=== PATIENT | female | born 1975 | race Caucasian/White ===

== ENCOUNTER 2018-12-21 10:40 | Emergency (ER) | payer SELFPAY ==
[~2018-12-21] VITALS: Ht 160 cm; Wt 75.7 kg
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
--- NOTE | 2018-12-21 10:49 | NUR ---
AT BEDSIDE FOR EVAL.
--- NOTE | 2018-12-21 10:55 | NUR ---
PT IS WHEELED TO CT SCAN VIA [facility].
[2018-12-21] MEDS ORDERED: ACETAMINOPHEN ES 500 MG TABLET ONE (11:04)
[2018-12-21] MEDS ORDERED: IBUPROFEN 600 MG TABLET PO ONE (11:05)
[2018-12-21] MEDS ORDERED: ONDANSETRON 4 MG TAB.RAPDIS ONE (11:05)
[2018-12-21] MEDS: ACETAMINOPHEN ES 500 MG TABLET PO ONE (11:08)
[2018-12-21] MEDS: IBUPROFEN 600 MG TABLET PO ONE (11:08)
[2018-12-21] MEDS: ONDANSETRON 4 MG TAB.RAPDIS PO ONE (11:08)
--- NOTE | 2018-12-21 13:16 | NUR ---
Patient discharged to home in stable condition. Written and verbal after care instructions given. Patient verbalizes understanding of instruction.
[2018-12-21 13:17] VITALS: BP 122/64
== END 2018-12-21 13:18 | disposition home or self-care (01) ==
LOC: ER 10:43
DX: S06.0X0A Concussion without loss of consciousness, initial encounter (principal); S16.1XXA Strain of muscle, fascia and tendon at neck level, initial encounter; S39.012A Strain of muscle, fascia and tendon of lower back, initial encounter; Z88.0 Allergy status to penicillin; V49.49XA Driver injured in collision with other motor vehicles in traffic accident, initial encounter; Y93.89 Activity, other specified; Y92.413 State road as the place of occurrence of the external cause; Y99.8 Other external cause status
CPT/HCPCS: 70450; 72125; 72131; 99284; Q0162

== ENCOUNTER 2019-05-26 11:14 | Outpatient (CLI) | payer BC | END 2019-05-26 23:59 | disposition home or self-care (01) | LOC: WOU 11:14 | PROVIDERS: ATTEND Surgery | DX: Z80.3 Family history of malignant neoplasm of breast (principal); Z12.31 Encounter for screening mammogram for malignant neoplasm of breast | CPT/HCPCS: G0463 ==